=== PATIENT | male | born 1965 | race Caucasian/White ===

== ENCOUNTER 2016-08-08 10:36 | Emergency (ER) | payer BC ==
[~2016-08-08] VITALS: Ht 177.8 cm; Wt 90.7 kg
[2016-08-08] MEDS ORDERED: ASPI-605 PO (10:47)
[2016-08-08] MEDS ORDERED: CETI-102 PO (10:47)
--- NOTE | 2016-08-08 11:05 | NUR ---
DR AQUINO AT THE BEDSIDE FOR EVAL AND EXAM.
[2016-08-08 11:21] LABS: *BILIRUBIN,URIN NEGATIVE (NEGATIVE); *BLOOD, URINE NEGATIVE (NEGATIVE); *CLARITY,URINE CLEAR (CLEAR); *COLOR,URINE YELLOW (YELLOW); *KETONES,URINE NEGATIVE (NEGATIVE); *PROTEIN,URINE NEGATIVE (NEGATIVE); *UROBILINOGEN,URINE 0.2 E.U./dl (NORMAL); LEUKOCYTE ESTERASE ,URINE NEGATIVE (NEGATIVE); NITRITE, URINE NEGATIVE (NEGATIVE); PH,URINE 6.5 (5.0-8.0); UGLUCOSE NEGATIVE (NEGATIVE)
[2016-08-08 11:41] LABS: RBC,URINE NONE SEEN /HPF (0-3); WBC,URINE NONE SEEN /HPF (0-3)
[2016-08-08 11:42] LABS: BACTERIA,URINE NONE SEEN /HPF (NONE SEEN); SQUAMOUS EPITHELIAL CELL,UR FEW /HPF (NONE SEEN)
[2016-08-08 12:04] LABS: *OCCULT BLOOD STOOL NEGATIVE (NEGATIVE)
[2016-08-08 12:12] LABS: BASOPHILS % (AUTO) 0.7 % (0.0-2.0); EOSINOPHILS # (AUTO) 0.1 K/uL (0.0-0.7); EOSINOPHILS % (AUTO) 2.2 % (0.0-7.0); HEMATOCRIT 47.4 % (40-50); HEMOGLOBIN 15.6 G/DL (14.0-18.0); LYMPHOCYTES # (AUTO) 1.7 K/UL (0.8-4.8); LYMPHOCYTES % (AUTO) 25.9 % (20.5-51.5); MEAN CORPUSCULAR HEMOGLOBIN 28.8 UUG (27.0-31.0); MEAN CORPUSCULAR HGB CONC 33 g/dL (32.0-37.0); MEAN CORPUSCULAR VOLUME 87.4 FL (82.0-92.0); MONOCYTES # (AUTO) 0.4 K/UL (0.1-1.30); MONOCYTES % (AUTO) 6.4 % (0.0-11.0); NEUTROPHILS # (AUTO) 4.4 K/UL (1.8-8.9); NEUTROPHILS % (AUTO) 64.8 % (38.5-71.5); PLATELET COUNT (AUTO) 279 K/UL (150-450); RED BLOOD CELL COUNT(AUTO) 5.43 MIL/UL (4.7-6.1); RED CELL DISTRIBUTION WIDTH 12.6 % (11.5-14.5); WHITE BLOOD COUNT (AUTO) 6.6 K/UL (4.0-11.2)
[2016-08-08 12:17] LABS: CALCIUM 8.9 mg/dL (8.5-10.1)
[2016-08-08 12:23] LABS: ALBUMIN 4.1 g/dL (3.4-5.0); BILIRUBIN,DIRECT 0.1 mg/dL (0.0-0.2); BILIRUBIN,TOTAL 0.5 mg/dL (0.2-1.0); TOTAL PROTEIN, SERUM 7.3 g/dL (6.4-8.2)
[2016-08-08 13:29] VITALS: BP 141/77
--- NOTE | 2016-08-08 13:45 | NUR ---
Patient discharged to home in stable conditon. Written and verbal after care instructions given. Patient verbalizes understanding of instructions.
== END 2016-08-08 13:45 | disposition home or self-care (01) ==
LOC: ER 10:36
DX: R10.9 Unspecified abdominal pain (principal); E78.5 Hyperlipidemia, unspecified; R35.0 Frequency of micturition; M54.9 Dorsalgia, unspecified; Z88.8 Allergy status to other drugs, medicaments and biological substances; Z79.82 Long term (current) use of aspirin
CPT/HCPCS: 36415; 83690; 85025; 87086; A4663

== ENCOUNTER 2017-04-12 22:54 | Emergency (ER) | payer BC ==
[~2017-04-12] VITALS: Ht 177.8 cm; Wt 95.3 kg
[~2017-04-12 22:54] MED LIST: ASPI-605 PO; CETI-102 PO
--- NOTE | 2017-04-13 00:13 | NUR ---
Patient discharged to home in stable conditon. Written and verbal after care instructions given. Patient verbalizes understanding of instructions.
== END 2017-04-13 00:14 | disposition home or self-care (01) ==
LOC: ER 22:54
DX: J06.9 Acute upper respiratory infection, unspecified (principal); E78.5 Hyperlipidemia, unspecified; Z79.82 Long term (current) use of aspirin
CPT/HCPCS: 71045; 87400; A4663